=== PATIENT | male | born 1975 | race Caucasian/White ===

== ENCOUNTER 2022-02-16 23:49 | Emergency (ER) | payer BC ==
[2022-02-16] MEDS ORDERED: Lidocaine 1% 5 ML VIAL INJECT ONE (23:52)
[2022-02-17] MEDS ORDERED: Bacitracin Oint 1 GM U/D Packet TOP ONE (00:03)
== END 2022-02-17 00:46 | disposition home or self-care (01) ==
LOC: JP.ED 23:49
DX: S61.216A Laceration without foreign body of right little finger without damage to nail, initial encounter (principal); W25.XXXA Contact with sharp glass, initial encounter
CPT/HCPCS: 12002; 99282